=== PATIENT | female | born 1995 | race Caucasian/White ===

== ENCOUNTER 2023-11-25 00:23 | Emergency (ER) | payer MEDICARE, OTHER ==
[~2023-11-25] VITALS: Ht 167.6 cm; Wt 52.2 kg
[~2023-11-25 00:23] MED LIST: Insulin Detemir SQ; LANTUS SQ; LANTUS100 UNIT/1 SC; LEVEMIR 3M100 UNITS/ SQ; NOVOLIN N100 UNIT/1 SC; NOVOLOG100 UNIT/1 SC; NOVOLOG100 UNIT/2 SQ; PANTOPRAZOLE SO40 MG; PEPCID20 MG PO; ZOFRAN ODT4 MG PO
[2023-11-25 00:25] VITALS: PULSE 94; RESP 22; TEMP 98.3
[2023-11-25] MEDS: SODIUM CHLORIDE 0.9% 1000ML 1,000 ML IV ONE (02:22)
[2023-11-25] MEDS: LEVOFLOXACIN 750MG/D5W 150ML 150 ML IV SCH (02:22)
[2023-11-25] MEDS: METRONIDAZOLE 500MG/NS 100ML 100 ML IV ONE (02:23)
[2023-11-25] MEDS ORDERED: LEVOFLOXACIN750 MG PO (03:33)
[2023-11-25] MEDS ORDERED: METRONIDAZOLE500 MG PO (03:34)
[2023-11-25] MEDS ORDERED: MUPIROCIN22 GM TOP (03:36)
[2023-11-25] MEDS: HEPARIN 500 UNITS/5ML MDV INJ ONE (04:02)
[2023-11-25 04:07] VITALS: BP 130/76; PULSE 84; RESP 17; TEMP 97.7; O2SAT 100
== END 2023-11-25 04:10 | disposition home or self-care (01) ==
LOC: FSED 00:33
DX: E10.69 Type 1 diabetes mellitus with other specified complication (principal); M86.8X7 Other osteomyelitis, ankle and foot; L03.032 Cellulitis of left toe; E10.621 Type 1 diabetes mellitus with foot ulcer; L97.529 Non-pressure chronic ulcer of other part of left foot with unspecified severity; M84.478A Pathological fracture, left toe(s), initial encounter for fracture; E10.43 Type 1 diabetes mellitus with diabetic autonomic (poly)neuropathy; K31.84 Gastroparesis; Z79.899 Other long term (current) drug therapy
CPT/HCPCS: 73700; 87040; 99284; J7030

== ENCOUNTER 2023-12-01 04:48 | Emergency (ER) | payer MEDICARE, OTHER ==
[~2023-12-01] VITALS: Ht 167.6 cm; Wt 52.2 kg
[~2023-12-01 04:48] MED LIST changes: +LEVOFLOXACIN750 MG PO; +METRONIDAZOLE500 MG PO; +MUPIROCIN22 GM TOP
[2023-12-01 05:00] VITALS: PULSE 98; RESP 18; TEMP 98; O2SAT 96
== END 2023-12-01 05:19 | disposition home or self-care (01) ==
LOC: FSED 04:59
DX: M79.675 Pain in left toe(s) (principal); M86.8X8 Other osteomyelitis, other site; E11.9 Type 2 diabetes mellitus without complications; D64.9 Anemia, unspecified
CPT/HCPCS: 99282

== ENCOUNTER 2024-01-28 14:05 | Inpatient (IN) | payer MEDICARE ==
[~2024-01-28] VITALS: Ht 167.6 cm; Wt 49.9 kg
[2024-01-28 14:10] VITALS: TEMP 98
[2024-01-28] MEDS: HALOPERIDOL LACTATE 5 MG/ML VIAL IV ONE (15:09)
[2024-01-28] MEDS: SODIUM CHLORIDE 0.9% 1000ML 1,000 ML IV ONE ×2 (15:09)
[2024-01-28] MEDS: Morphine 4mg INJECTION 4 MG/ML INJ IV ONE (15:10)
[2024-01-28 15:11] LABS: BASOPHILS # (AUTO) 0.1 (0.0-0.1); BASOPHILS % 0.4 % (0.0-1.0); HEMATOCRIT 33.6 % (34.2-44.1); HEMOGLOBIN 10.4 g/dL (12.0-16.0); LYMPHOCYTES # (AUTO) 3.4 (1.0-3.2); LYMPHOCYTES % 13.1 % (18.0-39.1); MEAN CORPUSCULAR HEMOGLOBIN 26.3 pg (28-32); MEAN CORPUSCULAR VOLUME 84.8 fL (81-99); MONOCYTES # (AUTO) 1.4 (0.2-0.8); MONOCYTES % 5.2 % (4.4-11.3); NEUTROPHILS # (AUTO) 20.7 (2.1-6.9); NEUTROPHILS % 79.7 % (38.7-80.0); PLATELET COUNT 517 x10e3/uL (140-360); RED BLOOD COUNT 3.96 x10e6/uL (3.6-5.1); RED CELL DISTRIBUTION WIDTH 18.5 % (11.7-14.4); WHITE BLOOD COUNT 25.92 x10e3/uL (4.8-10.8)
[2024-01-28 15:39] LABS: ALBUMIN/GLOBULIN RATIO 0.6 (0.8-2.0); ANION GAP 37.5 mmol/L (8-16); BILIRUBIN,TOTAL 0.6 mg/dL (0.2-1.2); CALCIUM 8.7 mg/dL (8.4-10.2); CREATININE, SERUM 2.39 mg/dL (0.57-1.11); POTASSIUM 4.5 mmol/L (3.5-5.1); TOTAL PROTEIN 8.3 g/dL (6.5-8.1)
[2024-01-28] MEDS ORDERED: POTASSIUM CHLORIDE 20MEQ/100ML 100 ML INJ PRN (16:15)
[2024-01-28] MEDS ORDERED: POTASSIUM CHLORIDE 20MEQ/100ML 200 ML IV PRN (16:15)
[2024-01-28] MEDS: SODIUM CHLORIDE 0.9% 1000ML 1,000 ML IV SCH (16:50)
[2024-01-28] MEDS: INSULIN REGULAR, HUMAN 3ML VL 100 UNIT in SODIUM CHLORIDE 0.9% 99 ML IV SCH (16:50)
[2024-01-28] MEDS: MEROPENEM 1 GM in SODIUM CHLORIDE 0.9% 100 ML IV SCH (17:29)
[2024-01-28] MEDS: MUPIROCIN 2% OINT 22 GM TUBE NS SCH (17:29)
[2024-01-28 18:08] LABS: ANION GAP 27.7 mmol/L (8-16); CALCIUM 7.8 mg/dL (8.4-10.2); CREATININE, SERUM 2.04 mg/dL (0.57-1.11); MAGNESIUM 1.7 MG/DL (1.3-2.1); POTASSIUM 3.7 mmol/L (3.5-5.1)
[2024-01-28] MEDS: Vancomycin IV 1 GM in SODIUM CHLORIDE 0.9% 250ML 250 ML IV ONE (19:16)
[2024-01-28] MEDS: MAGNESIUM SULF 1GRAM/DEXTROSE 100 ML IV PRN (19:16)
[2024-01-28] MEDS: Morphine 4mg INJECTION 4 MG/ML INJ IV PRN (19:16)
[2024-01-28 19:36] VITALS: PULSE 82; RESP 22
[2024-01-28 21:04] VITALS: BP 152/91; PULSE 79; RESP 18; TEMP 97.8; O2SAT 100
[2024-01-28 21:15] VITALS: BP 152/91; PULSE 79; RESP 18; TEMP 97.8; O2SAT 100
[2024-01-28] MEDS: DEXTROSE 50% SYRINGE 50 ML IV ONE (21:49)
[2024-01-28 22:00] VITALS: BP 160/96; PULSE 79; RESP 19; O2SAT 97
[2024-01-28 22:31] LABS: ANION GAP 16.5 mmol/L (8-16); CALCIUM 7.7 mg/dL (8.4-10.2); CREATININE, SERUM 1.68 mg/dL (0.57-1.11); POTASSIUM 3.5 mmol/L (3.5-5.1)
[2024-01-28] MEDS: DEXTROSE 5%/0.45% SOD CHL 1,000 ML IV SCH (22:43)
[2024-01-28] MEDS ORDERED: MAGNESIUM/ALUMINUM/SIMETHICONE 30 ML UDC PO PRN (22:45)
[2024-01-28] MEDS ORDERED: GUAIFENESIN/DEXTROMETHORPHAN LIQD 5 ML UDC PO PRN (22:45)
[2024-01-28] MEDS ORDERED: ACETAMINOPHEN 325 MG TAB PO PRN (22:45)
[2024-01-28] MEDS ORDERED: ONDANSETRON HCL INJ 2MG/ML 2ML 2 MG/ML VIAL IV PRN (22:45)
[2024-01-28] MEDS ORDERED: DOCUSATE SODIUM 100 MG CAP PO PRN (22:45)
[2024-01-28 23:00] VITALS: BP 145/80; PULSE 78; RESP 17; O2SAT 100
[2024-01-29] VITALS (28 sets, daily range): BP systolic 110–173; BP diastolic 69–97; PULSE 71–85; RESP 11–24; TEMP 98.1–98.7; O2SAT 95–100
[2024-01-29] MEDS ORDERED: METOCLOPRAMIDE HCL 10 MG/2ML VIAL IV PRN (00:30)
[2024-01-29 03:29] LABS: ANION GAP 18.2 mmol/L (8-16); CALCIUM 8.5 mg/dL (8.4-10.2); CREATININE, SERUM 1.59 mg/dL (0.57-1.11); MAGNESIUM 1.9 MG/DL (1.3-2.1)
[2024-01-29 03:30] LABS: POTASSIUM 3.2 mmol/L (3.5-5.1)
[2024-01-29 03:43] LABS: LIPASE 41 U/L (8-78); TRIGLYCERIDES 142 MG/DL (0-149)
[2024-01-29 07:03] LABS: BASOPHILS # (AUTO) 0.1 (0.0-0.1); BASOPHILS % 0.2 % (0.0-1.0); EOSINOPHILS # (AUTO) 0.1 (0.0-0.4); EOSINOPHILS % 0.6 % (0.0-6.0); HEMATOCRIT 30.3 % (34.2-44.1); HEMOGLOBIN 9.2 g/dL (12.0-16.0); LYMPHOCYTES # (AUTO) 1.9 (1.0-3.2); LYMPHOCYTES % 9.2 % (18.0-39.1); MEAN CORPUSCULAR HEMOGLOBIN 25.9 pg (28-32); MEAN CORPUSCULAR HGB CONC 30.4 g/dL (31-35); MEAN CORPUSCULAR VOLUME 85.4 fL (81-99); MONOCYTES # (AUTO) 0.9 (0.2-0.8); MONOCYTES % 4.5 % (4.4-11.3); NEUTROPHILS # (AUTO) 17.3 (2.1-6.9); NEUTROPHILS % 84.5 % (38.7-80.0); PLATELET COUNT 413 x10e3/uL (140-360); RED BLOOD COUNT 3.55 x10e6/uL (3.6-5.1); RED CELL DISTRIBUTION WIDTH 17.9 % (11.7-14.4); WHITE BLOOD COUNT 20.48 x10e3/uL (4.8-10.8)
[2024-01-29 07:38] LABS: ALBUMIN 2.2 g/dL (3.5-5.0); ALBUMIN/GLOBULIN RATIO 0.5 (0.8-2.0); BILIRUBIN,TOTAL 0.3 mg/dL (0.2-1.2); CALCIUM 7.7 mg/dL (8.4-10.2); CREATININE, SERUM 1.34 mg/dL (0.57-1.11); TOTAL PROTEIN 6.4 g/dL (6.5-8.1)
[2024-01-29] MEDS: MULTIVITAMINS/MINERALS TAB PO SCH (09:10)
[2024-01-29] MEDS: FAMOTIDINE 20 MG TAB PO SCH (09:11)
[2024-01-29 09:45] LABS: LYMPHOCYTES % (MANUAL) 26 % (19-48); MONOCYTES % (MANUAL) 3 % (3.4-9.0); NEUTROPHILS % (MANUAL) 71 % (40-74)
[2024-01-29 09:46] LABS: PLATELET ESTIMATE ADEQUATE
[2024-01-29 09:47] LABS: PLATELET MORPHOLOGY COMMENT NORMAL; RBC MORPHOLOGY COMMENT NORMAL
[2024-01-29] MEDS ORDERED: HYDROMORPHONE 1MG/1ML INJ IV PRN (10:00)
[2024-01-29] MEDS: HYDROMORPHONE 1MG/1ML INJ IV PRN (10:18)
[2024-01-29] MEDS: POTASSIUM CHLORIDE 20MEQ/100ML 200 ML IV PRN (10:57)
[2024-01-29 13:12] LABS: ANION GAP 13.1 mmol/L (8-16); CALCIUM 8.4 mg/dL (8.4-10.2); CREATININE, SERUM 1.23 mg/dL (0.57-1.11); MAGNESIUM 1.6 MG/DL (1.3-2.1)
[2024-01-29 13:13] LABS: POTASSIUM 3.1 mmol/L (3.5-5.1)
[2024-01-29] MEDS: PROMETHAZINE 12.5MG/ NACL 0.9% 12.5 MG/50 ML BAG IV PRN (15:52)
[2024-01-29] MEDS: ENOXAPARIN SOD INJ 40 MG/0.4 ML SYR SC SCH (17:04)
[2024-01-29] MEDS: INSULIN REGULAR, HUMAN 3ML VL 100 UNIT in SODIUM CHLORIDE 0.9% 100 ML IV SCH (19:49)
[2024-01-29 21:32] LABS: ANION GAP 11.6 mmol/L (8-16); CALCIUM 8.2 mg/dL (8.4-10.2); CREATININE, SERUM 1.13 mg/dL (0.57-1.11); POTASSIUM 3.6 mmol/L (3.5-5.1)
[2024-01-29] MEDS: DEXTROSE 50% SYRINGE 50 ML IV PRN (23:32)
[2024-01-30] VITALS (14 sets, daily range): BP systolic 107–171; BP diastolic 70–98; PULSE 72–90; RESP 8–20; TEMP 98.1–98.4; O2SAT 90–100
[2024-01-30 07:00] LABS: ANION GAP 13.6 mmol/L (8-16); CALCIUM 8.4 mg/dL (8.4-10.2); CREATININE, SERUM 0.97 mg/dL (0.57-1.11); POTASSIUM 3.6 mmol/L (3.5-5.1)
[2024-01-30] MEDS: PROMETHAZINE 12.5MG/ NACL 0.9% 12.5 MG/50 ML BAG IV ONE (11:51)
[2024-01-30] MEDS: HYDROMORPHONE 1MG/1ML INJ IV PRN (13:12)
[2024-01-30 14:56] LABS: FERRITIN 404.34 ng/mL (4.63-204.00)
[2024-01-30 15:23] LABS: FOLATE 8.5 ng/mL (7.0-15.4)
[2024-01-31] VITALS (12 sets, daily range): BP systolic 115–166; BP diastolic 70–107; PULSE 72–91; RESP 9–18; TEMP 98.1–98.6; O2SAT 96–100
[2024-01-31] MEDS: METOCLOPRAMIDE HCL 10 MG/2ML VIAL IV PRN (02:50)
[2024-01-31 06:51] LABS: BASOPHILS % 0.7 % (0.0-1.0); EOSINOPHILS # (AUTO) 0.5 (0.0-0.4); HEMATOCRIT 30.3 % (34.2-44.1); LYMPHOCYTES % 34.5 % (18.0-39.1); MEAN CORPUSCULAR HEMOGLOBIN 26.2 pg (28-32); MEAN CORPUSCULAR HGB CONC 29.7 g/dL (31-35); MEAN CORPUSCULAR VOLUME 88.1 fL (81-99); MONOCYTES # (AUTO) 0.4 (0.2-0.8); MONOCYTES % 6.3 % (4.4-11.3); NEUTROPHILS % 50.3 % (38.7-80.0); PLATELET COUNT 290 x10e3/uL (140-360); RED BLOOD COUNT 3.44 x10e6/uL (3.6-5.1); RED CELL DISTRIBUTION WIDTH 18.1 % (11.7-14.4); WHITE BLOOD COUNT 5.86 x10e3/uL (4.8-10.8)
[2024-01-31 07:46] LABS: ANION GAP 11.4 mmol/L (8-16); CALCIUM 8.1 mg/dL (8.4-10.2); CREATININE, SERUM 0.79 mg/dL (0.57-1.11)
[2024-01-31 07:53] LABS: POTASSIUM 3.4 mmol/L (3.5-5.1)
[2024-01-31] MEDS: PREGABALIN 50 MG CAP PO SCH (10:35)
[2024-01-31] MEDS: METOCLOPRAMIDE HCL 10 MG/2ML VIAL IV SCH (11:37)
[2024-01-31] MEDS ORDERED: DEXTROSE 50% SYRINGE 50 ML IV PRN (14:30)
[2024-01-31] MEDS: INSULIN LISPRO 100 UNIT/1 ML 3ML VIAL SQ SCH (16:13)
[2024-01-31] MEDS: INSULIN GLARGINE 100 UNITS/ML VIAL SQ SCH (20:52)
[2024-01-31] MEDS: PERIPHERAL TPN FORMULA 1 BAG IV SCH (21:03)
[2024-02-01] VITALS (26 sets, daily range): BP systolic 106–215; BP diastolic 72–136; PULSE 79–92; RESP 12–25; TEMP 98–98.6; O2SAT 98–100
[2024-02-01] MEDS: IRON SUCROSE 100 MG in SODIUM CHLORIDE 0.9% 100 ML IV SCH (12:00)
[2024-02-01] MEDS: HYDROCODONE/APAP 10MG-325MG TAB PO SCH (12:01)
[2024-02-01] MEDS ORDERED: INSULIN REGULAR, HUMAN 3ML VL 100 UNIT in SODIUM CHLORIDE 0.9% 100 ML IV SCH (16:30)
[2024-02-01] MEDS: PREGABALIN 50 MG CAP PO SCH (16:59)
[2024-02-01] MEDS: PERIPHERAL TPN FORMULA 1 BAG IV SCH (19:57)
[2024-02-01 22:28] LABS: BASOPHILS % 0.5 % (0.0-1.0); EOSINOPHILS # (AUTO) 0.9 (0.0-0.4); EOSINOPHILS % 10.7 % (0.0-6.0); HEMATOCRIT 30.9 % (34.2-44.1); HEMOGLOBIN 9.1 g/dL (12.0-16.0); LYMPHOCYTES # (AUTO) 1.4 (1.0-3.2); LYMPHOCYTES % 16.3 % (18.0-39.1); MEAN CORPUSCULAR HEMOGLOBIN 25.9 pg (28-32); MEAN CORPUSCULAR HGB CONC 29.4 g/dL (31-35); MONOCYTES # (AUTO) 0.3 (0.2-0.8); MONOCYTES % 3.3 % (4.4-11.3); NEUTROPHILS # (AUTO) 5.9 (2.1-6.9); PLATELET COUNT 237 x10e3/uL (140-360); RED BLOOD COUNT 3.51 x10e6/uL (3.6-5.1); WHITE BLOOD COUNT 8.53 x10e3/uL (4.8-10.8)
[2024-02-01 22:28] LABS: MAGNESIUM 1.7 MG/DL (1.3-2.1); PHOSPHORUS 2.2 MG/DL (2.3-4.7)
[2024-02-01 22:37] LABS: ANION GAP 15.8 mmol/L (8-16); CALCIUM 8.6 mg/dL (8.4-10.2)
[2024-02-01 22:43] LABS: POTASSIUM 4.8 mmol/L (3.5-5.1)
[2024-02-01 22:44] LABS: CREATININE, SERUM 1.48 mg/dL (0.57-1.11)
[2024-02-02] VITALS (11 sets, daily range): BP systolic 123–175; BP diastolic 75–103; PULSE 74–94; RESP 15–18; TEMP 96–98.7; O2SAT 98–99
[2024-02-02] MEDS: DEXTROSE 5%/0.45% SOD CHL 1,000 ML IV SCH (01:39)
[2024-02-02] MEDS: HYDRALAZINE HCL 20 MG/ML VIAL IV PRN (02:21)
[2024-02-02 06:47] LABS: ANION GAP 11.9 mmol/L (8-16); CALCIUM 8.8 mg/dL (8.4-10.2); CREATININE, SERUM 0.96 mg/dL (0.57-1.11); POTASSIUM 3.9 mmol/L (3.5-5.1)
[2024-02-02 07:19] LABS: MAGNESIUM 1.8 MG/DL (1.3-2.1)
[2024-02-02 07:41] LABS: PHOSPHORUS 1.9 MG/DL (2.3-4.7)
[2024-02-02] MEDS: PROMETHAZINE 12.5MG/ NACL 0.9% 12.5 MG/50 ML BAG IV PRN (08:25)
[2024-02-02] MEDS: HYDROMORPHONE 2MG/ML IV PRN (15:52)
[2024-02-02] MEDS: PERIPHERAL TPN FORMULA 1 BAG IV SCH (19:52)
[2024-02-03] VITALS (16 sets, daily range): BP systolic 110–180; BP diastolic 70–103; PULSE 86–98; RESP 14–30; TEMP 98–98.6; O2SAT 97–100
[2024-02-03 09:29] LABS: ALBUMIN 2.3 g/dL (3.5-5.0); ALBUMIN/GLOBULIN RATIO 0.5 (0.8-2.0); ANION GAP 12.1 mmol/L (8-16); BILIRUBIN,TOTAL 0.2 mg/dL (0.2-1.2); CREATININE, SERUM 1.11 mg/dL (0.57-1.11); POTASSIUM 5.1 mmol/L (3.5-5.1); TOTAL PROTEIN 6.6 g/dL (6.5-8.1)
[2024-02-03] MEDS ORDERED: INSULIN LISPRO 100 UNIT/1 ML 3ML VIAL SQ ONE (14:45)
[2024-02-03] MEDS: INSULIN LISPRO 100 UNIT/1 ML 3ML VIAL SQ SCH ×2 (16:30)
[2024-02-03] MEDS ORDERED: INSULIN GLARGINE 100 UNITS/ML VIAL SQ SCH ×2 (17:00→21:00)
[2024-02-03] MEDS: INSULIN LISPRO 100 UNIT/1 ML 3ML VIAL SQ ONE (21:34)
[2024-02-03] MEDS: INSULIN GLARGINE 100 UNITS/ML VIAL SQ SCH (21:49)
[2024-02-04] VITALS (17 sets, daily range): BP systolic 96–176; BP diastolic 60–101; PULSE 76–93; RESP 11–23; TEMP 97.8–98.2; O2SAT 96–100
[2024-02-04 06:46] LABS: BASOPHILS # (AUTO) 0.1 (0.0-0.1); BASOPHILS % 0.6 % (0.0-1.0); EOSINOPHILS # (AUTO) 1.7 (0.0-0.4); EOSINOPHILS % 18.5 % (0.0-6.0); HEMATOCRIT 31.7 % (34.2-44.1); HEMOGLOBIN 9.1 g/dL (12.0-16.0); LYMPHOCYTES # (AUTO) 2.9 (1.0-3.2); LYMPHOCYTES % 30.7 % (18.0-39.1); MEAN CORPUSCULAR HEMOGLOBIN 25.6 pg (28-32); MEAN CORPUSCULAR HGB CONC 28.7 g/dL (31-35); MEAN CORPUSCULAR VOLUME 89.3 fL (81-99); MONOCYTES # (AUTO) 0.7 (0.2-0.8); NEUTROPHILS % 42.7 % (38.7-80.0); PLATELET COUNT 342 x10e3/uL (140-360); RED BLOOD COUNT 3.55 x10e6/uL (3.6-5.1); RED CELL DISTRIBUTION WIDTH 18.1 % (11.7-14.4); WHITE BLOOD COUNT 9.35 x10e3/uL (4.8-10.8)
[2024-02-04 07:08] LABS: ANION GAP 12.7 mmol/L (8-16); CALCIUM 9.1 mg/dL (8.4-10.2); CREATININE, SERUM 0.94 mg/dL (0.57-1.11); POTASSIUM 4.7 mmol/L (3.5-5.1)
[2024-02-04] MEDS: INSULIN LISPRO 100 UNIT/1 ML 3ML VIAL SQ SCH (16:30)
[2024-02-04] MEDS: INSULIN LISPRO 100 UNIT/1 ML 3ML VIAL SQ ONE (17:32)
[2024-02-04] MEDS: MELATONIN 3 MG TAB PO PRN (22:19)
[2024-02-05] VITALS (12 sets, daily range): BP systolic 112–170; BP diastolic 73–107; PULSE 78–104; RESP 4–20; TEMP 97.7–98.2; O2SAT 89–100
[2024-02-05] MEDS: HYDROMORPHONE 1MG/1ML INJ IV PRN ×2 (10:38→18:41)
[2024-02-05] MEDS: INSULIN LISPRO 100 UNIT/1 ML 3ML VIAL SQ SCH ×2 (11:26→17:43)
[2024-02-05] MEDS: PREGABALIN 75 MG CAP PO SCH (13:52)
[2024-02-05] MEDS: HYDROMORPHONE 1MG/1ML INJ IV ONE (15:17)
[2024-02-05] MEDS ORDERED: INSULIN GLARGINE 100 UNITS/ML VIAL SQ SCH (21:00)
[2024-02-05] MEDS: INSULIN GLARGINE 100 UNITS/ML VIAL SQ SCH (21:28)
[2024-02-06] VITALS: BP 132/86; PULSE 101; RESP 18; TEMP 98.4; O2SAT 97
[2024-02-06 04:00] VITALS: BP 141/85; PULSE 79; RESP 18; TEMP 98.2; O2SAT 99
[2024-02-06 07:48] VITALS: BP 145/96; PULSE 83; RESP 16; TEMP 97.9; O2SAT 100
[2024-02-06] MEDS: HEPARIN 500 UNITS/5ML MDV INJ ONE (11:18)
[2024-02-06 11:31] VITALS: BP 147/94; PULSE 88; RESP 18; TEMP 98.6; O2SAT 100
== END 2024-02-06 11:55 | disposition home or self-care (01) | DRG 637 ==
LOC: ER 14:11 → ERHOLD 16:42 → ICU 20:40 → MED/SURG3 02-05 22:28
PROVIDERS: ADMIT Internal Medicine; ATTEND Internal Medicine
PROC: 3E0336Z Introduction of Nutritional Substance into Peripheral Vein, Percutaneous Approach (ICD-10-PCS; principal; 2024-02-01)
DX: E10.10 Type 1 diabetes mellitus with ketoacidosis without coma (principal); E43 Unspecified severe protein-calorie malnutrition; N17.9 Acute kidney failure, unspecified; F11.20 Opioid dependence, uncomplicated; Z68.1 Body mass index [BMI] 19.9 or less, adult; R13.10 Dysphagia, unspecified; D63.8 Anemia in other chronic diseases classified elsewhere; E86.0 Dehydration; E10.43 Type 1 diabetes mellitus with diabetic autonomic (poly)neuropathy; E10.649 Type 1 diabetes mellitus with hypoglycemia without coma; N31.9 Neuromuscular dysfunction of bladder, unspecified; F41.9 Anxiety disorder, unspecified; F32.A Depression, unspecified; D64.9 Anemia, unspecified; R00.0 Tachycardia, unspecified; K31.84 Gastroparesis; R53.81 Other malaise; G89.4 Chronic pain syndrome; R63.4 Abnormal weight loss; D75.839 Thrombocytosis, unspecified; D72.829 Elevated white blood cell count, unspecified; Z91.119 Patient's noncompliance with dietary regimen due to unspecified reason; Z95.828 Presence of other vascular implants and grafts; Z90.49 Acquired absence of other specified parts of digestive tract; Z88.0 Allergy status to penicillin; Z88.1 Allergy status to other antibiotic agents; Z88.8 Allergy status to other drugs, medicaments and biological substances
CPT/HCPCS: 36415; 71045; 80048; 80053; 80202; 82607; 82728; 82746; 82948; 83036; 83540; 83605; 83615; 83690; 83735; 84100; 84443; 84466; 84478; 84702; 85025; 85045; 87040; 93005; 94799; 96372; 99252; 99284; J0360; J1171; J1630; J1650; J1756; J1815; J2185; J2270; J2470; J2550; J2765; J3475; J3480; J7030; J7050; J7799

== ENCOUNTER 2024-02-29 19:48 | Emergency (ER) | payer MEDICARE ==
[~2024-02-29] VITALS: Ht 167.6 cm; Wt 45.4 kg
[2024-02-29 20:12] VITALS: PULSE 94; RESP 18; TEMP 98.4
[2024-02-29 21:45] VITALS: BP 97/72; PULSE 90; RESP 18; TEMP 98.4; O2SAT 97
== END 2024-02-29 21:45 | disposition home or self-care (01) ==
LOC: FSED 19:55
DX: E10.40 Type 1 diabetes mellitus with diabetic neuropathy, unspecified (principal); E10.65 Type 1 diabetes mellitus with hyperglycemia; D64.9 Anemia, unspecified; R20.0 Anesthesia of skin; R20.2 Paresthesia of skin; F17.210 Nicotine dependence, cigarettes, uncomplicated
CPT/HCPCS: 70450; 80053; 81003; 82553; 84484; 85025; 93005; 99283

== ENCOUNTER 2024-06-28 23:37 | Emergency (ER) | payer MEDICARE ==
[~2024-06-28] VITALS: Ht 167.6 cm; Wt 47.6 kg
[2024-06-28 23:40] VITALS: PULSE 94; RESP 20; TEMP 99; O2SAT 97
[2024-06-28] MEDS ORDERED: ONDANSETRON HCL 4 MG ORAL DISINTEGRATING TAB PO ONE (23:45)
[2024-06-29] MEDS ORDERED: KETOROLAC TROMETHAMINE 30 MG/ML VIAL IV STA (00:35)
[2024-06-29] MEDS ORDERED: Morphine 4mg INJECTION 4 MG/ML INJ IV ONE (00:45)
[2024-06-29] MEDS ORDERED: SODIUM CHLORIDE 0.9% 1000ML 1,000 ML IV ONE (00:45)
[2024-06-29] MEDS ORDERED: PROMETHAZINE 12.5MG/ NACL 0.9% 12.5 MG/50 ML BAG IV ONE (00:45)
[2024-06-29] MEDS: Morphine 4mg INJECTION 4 MG/ML INJ IM ONE (01:57)
[2024-06-29] MEDS: KETOROLAC TROMETHAMINE 60 MG/2 ML VIAL IM ONE (01:58)
[2024-06-29] MEDS: PROMETHAZINE HCL (IM) 25 MG/ML VIAL IM ONE (02:08)
[2024-06-29] MEDS ORDERED: PHENERGAN SUPP25 MG PR (02:25)
[2024-06-29] MEDS ORDERED: TAMIFLU75 MG PO (02:27)
== END 2024-06-29 02:00 | disposition home or self-care (01) ==
LOC: FSED 23:46
DX: R50.9 Fever, unspecified (principal); K31.84 Gastroparesis; R10.9 Unspecified abdominal pain; R11.2 Nausea with vomiting, unspecified; E86.0 Dehydration; E11.65 Type 2 diabetes mellitus with hyperglycemia; D64.9 Anemia, unspecified; Z11.52 Encounter for screening for COVID-19
CPT/HCPCS: 0223U; 83518 ×2; 87400; 99284; J1885; J2270; J2550